=== PATIENT | male | born 1975 | race Caucasian/White ===

== ENCOUNTER 2016-08-11 09:10 | Emergency (ER) | payer BC, OTHER ==
[~2016-08-11] VITALS: Ht 170.2 cm; Wt 92.0 kg
[~2016-08-11 09:10] MED LIST: CRESTOR40 MG PO; LEVO-T175 MCG PO; LEVOXYL200 MCG PO; LO-DOSE ASPIRIN81 M2 PO; NEXIUM40 MG PO; NITROSTAT0.4 MG SL; TOPROL XL25 MG PO; VITAMIN D2000 UNI1 PO; WELLBUTRIN XL150 MG PO; ZESTRIL5 MG PO; ZETIA10 MG PO
[2016-08-11] MEDS ORDERED: EFFIENT10 MG PO (09:45)
[2016-08-11 10:18] LABS: EOSINOPHIL (%) 1.3 % (0-5); EOSINOPHIL COUNT 0.1 K/uL (0-0.3); HEMATOCRIT 41.3 % (38.0-50.0); IMMATURE GRANULOCYTE (%) 0.2 % (0.0-0.7); LYMPHOCYTE COUNT 2.2 K/uL (1.0-2.8); MCH 30.3 PG (29.0-34.0); MCHC 36.1 G/DL (30.0-36.0); MCV 84.1 FL (86-99); MONOCYTE (%) 8.1 % (3-12); MONOCYTE COUNT 0.7 K/uL (0-0.8); NEUTROPHIL COUNT 5.4 K/uL (1.8-6.4); PLATELET COUNT 292 K/uL (156-360); RBC DIS.WIDTH-CV 14.7 % (11.8-14.6); RBC DIS.WIDTH-SD 44.9 % (39-53); RED BLOOD COUNT 4.91 M/uL (4.00-5.50); WHITE BLOOD COUNT 8.4 K/uL (4.1-10.2)
[2016-08-11 10:49] LABS: ALKALINE PHOSPHATASE 78 IU/L (3-129); ANION GAP 8 MEQ/L (2-14); CHLORIDE 107 MEQ/L (99-109); GFR ESTIMATE (CALCULATED) > 59 mL/min/; GLUCOSE 106 mg/dL (70-99); POTASSIUM 3.6 MEQ/L (3.7-5.4); SAMPLE HEMOLYSIS CHECK 0; SAMPLE ICTERIC CHECK 0; SAMPLE LIPEMIA CHECK 0; SODIUM 143 MEQ/L (136-147); TOTAL BILIRUBIN 1.3 MG/DL (0.0-1.0); UREA NITROGEN (BUN) 9 mg/dL (9-23)
[2016-08-11 11:13] LABS: LIPASE 37 U/L (1.0-51.0)
[2016-08-11] MEDS ORDERED: ZOFRAN ODT4 MG PO (11:22)
[2016-08-11] MEDS ORDERED: BENTYL20 MG PO (11:22)
[2016-08-11 11:40] VITALS: BP 146/79
== END 2016-08-11 11:40 | disposition home or self-care (01) ==
LOC: EME 09:10
PROVIDERS: Emergency Medicine
DX: R10.33 Periumbilical pain (principal); R19.7 Diarrhea, unspecified; M25.50 Pain in unspecified joint; I10 Essential (primary) hypertension; E78.5 Hyperlipidemia, unspecified; F17.200 Nicotine dependence, unspecified, uncomplicated; Z79.82 Long term (current) use of aspirin
CPT/HCPCS: 74022; 80053; 83690; 85025; 99281; 99284

== ENCOUNTER 2018-01-18 03:52 | Emergency (ER) | payer BC, OTHER ==
[~2018-01-18] VITALS: Ht 167.6 cm; Wt 90.0 kg
[~2018-01-18 03:52] MED LIST changes: +BENTYL20 MG PO; +EFFIENT10 MG PO; +ZOFRAN ODT4 MG PO
[2018-01-18 04:39] LABS: HEMATOCRIT 42.3 % (38.0-50.0); HEMOGLOBIN 15.3 G/DL (12.5-16.6); MCH 30.4 PG (29.0-34.0); MCHC 36.2 G/DL (30.0-36.0); MCV 84.1 FL (86-99); PLATELET COUNT 292 K/uL (156-360); RBC DIS.WIDTH-CV 14.2 % (11.8-14.6); RBC DIS.WIDTH-SD 43.3 % (39-53); RED BLOOD COUNT 5.03 M/uL (4.00-5.50); WHITE BLOOD COUNT 12.1 K/uL (4.1-10.2)
[2018-01-18 04:50] LABS: ALBUMIN 4.4 g/dL (3.2-4.8)
[2018-01-18 04:51] LABS: CHLORIDE 109 mEq/L (99-109); POTASSIUM 3.4 mEq/L (3.7-5.4); SODIUM 142 mEq/L (136-147)
[2018-01-18 04:53] LABS: GLUCOSE 106 mg/dL (70-99); TOTAL PROTEIN 6.8 g/dL (6.4-8.3)
[2018-01-18 04:55] LABS: TOTAL BILIRUBIN 0.9 mg/dL (0.0-1.0)
[2018-01-18 04:56] LABS: ALKALINE PHOSPHATASE 109 IU/L (3-129)
[2018-01-18 04:57] LABS: CREATININE 0.9 mg/dL (0.6-1.3); GFR ESTIMATE (CALCULATED) > 59 mL/min/ (58.99-99999)
[2018-01-18 04:58] LABS: AST (GOT) 21 IU/L (2-34); UREA NITROGEN (BUN) 8 mg/dL (9-23)
[2018-01-18 05:00] LABS: ALT (GPT) 30 IU/L (3-49); LIPASE 32 U/L (1.0-51.0)
[2018-01-18 05:29] LABS: APPEARANCE CLEAR ((CLEAR)); BILIRUBIN NEGATIVE; BLOOD NEGATIVE; COLOR YELLOW ((YELLOW)); GLUCOSE (STRIP) NEGATIVE; KETONES NEGATIVE; LEUKOCYTES NEGATIVE; NITRITE NEGATIVE; PROTEIN (STRIP) NEGATIVE; SPECIFIC GRAVITY 1.036 (1.000-1.030); UCUL ADDED? NO; UROBILINOGEN 0.2 MG/DL (0.2-1.0)
[2018-01-18] MEDS ORDERED: BENTYL20 MG PO (06:02)
[2018-01-18] MEDS ORDERED: REGLAN10 MG PO (06:02)
[2018-01-18 06:18] VITALS: BP 125/89
== END 2018-01-18 06:18 | disposition home or self-care (01) ==
LOC: EME 03:52
DX: B34.9 Viral infection, unspecified (principal); E86.0 Dehydration; K52.9 Noninfective gastroenteritis and colitis, unspecified; K76.0 Fatty (change of) liver, not elsewhere classified; I10 Essential (primary) hypertension; E78.5 Hyperlipidemia, unspecified; I25.10 Atherosclerotic heart disease of native coronary artery without angina pectoris; F32.9 Major depressive disorder, single episode, unspecified; F17.200 Nicotine dependence, unspecified, uncomplicated; Z79.82 Long term (current) use of aspirin; Z95.5 Presence of coronary angioplasty implant and graft; Z85.850 Personal history of malignant neoplasm of thyroid; Z98.890 Other specified postprocedural states
CPT/HCPCS: 74177; 80053; 81003; 83690; 85027; 99281; 99285; J7030; S0028